=== PATIENT | female | born 1995 | race Two or more races ===

== ENCOUNTER 2022-08-26 15:54 | Emergency (ER) | payer SELFPAY ==
[~2022-08-26] VITALS: Ht 165.1 cm; Wt 58.9 kg
[2022-08-26] VITALS (7 sets, daily range): BP systolic 89–108; BP diastolic 47–69
[2022-08-26 16:56] LABS: BASO% 0.4 % (0-3); EOS% 7.2 % (0-8); HEMATOCRIT 40.3 % (37.0-47.0); HEMOGLOBIN 13.4 g/dl (12.0-16.0); IMMATURE GRANULOCYTES 0.1 % (0.0-5.0); LYMPH% 37.8 % (15-41); MEAN CELL VOLUME 91.2 fL CALC (80.0-100.0); MEAN CORPUSCULAR HGB 30.3 pG CALC (26.0-32.0); MEAN CORPUSCULAR HGB CONC 33.3 g/dL CAL (32.0-36.0); MONO% 8.9 % (2-13); NEUT# 3.55 thou/uL (2.00-7.15); NEUT% 45.6 % (42-76); RED BLOOD COUNT 4.42 mill/uL (4.20-5.60); RED CELL DISTRI WIDTH 12.2 % (11.5-15.5)
[2022-08-26 16:58] LABS: URINE BILIRUBIN - DIPSTICK NEGATIVE (NEGATIVE); URINE BLOOD DIPSTICK LARGE (NEGATIVE); URINE COLOR YELLOW; URINE GLUCOSE - DIPSTICK NEGATIVE (NEGATIVE); URINE KETONE NEGATIVE (NEGATIVE); URINE LEUK ESTERASE NEGATIVE (NEGATIVE); URINE PH 7.5 (4.5-8.0); URINE PROTEIN - DIPSTICK NEGATIVE (NEG-TRACE); URINE UROBILINOGEN - DIPSTICK 0.2 E.U./dL (0.2)
[2022-08-26 17:08] LABS: URINE NITRITE - DIPSTICK NEGATIVE (Negative)
[2022-08-26 17:10] LABS: URINE SQUAMOUS EPITHELIAL CELL FEW EPI/hpf (0-FEW); URINE WBC 0-2 WBC/hpf (0-5)
== END 2022-08-26 19:55 | disposition home or self-care (01) | DRG 761 ==
LOC: ED 15:54
PROVIDERS: Family Medicine
DX: N93.9 Abnormal uterine and vaginal bleeding, unspecified (principal); F17.290 Nicotine dependence, other tobacco product, uncomplicated